=== PATIENT | female | born 1990 | race Caucasian/White ===

== ENCOUNTER 2023-01-02 13:20 | Emergency (ER) | payer OTHER, SELFPAY ==
[~2023-01-02] VITALS: Ht 162.6 cm; Wt 105.6 kg
[2023-01-02 13:20] VITALS: TEMP 98.7
[~2023-01-02 13:20] MED LIST: ALLE180T33 PO; APAP325T4 PO; IBUP1TAB7 PO; MELA3TAB49 PO
[2023-01-02 14:37] LABS: BASO # 0.1 10^3/uL (0.0-0.2); BASO % 0.9 % (0.0-1.0); EOS # 0.2 10^3/uL (0.0-0.5); EOS % 2.2 % (0.0-3.0); HEMATOCRIT 41.2 % (36.0-47.0); HEMOGLOBIN 13.8 g/dl (12.0-15.5); LYMPH # 2.3 10^3/uL (1.5-5.0); LYMPH % 33.3 % (24.0-44.0); MEAN CORPUSCULAR HEMOGLOBIN 29.1 pg (27.0-33.0); MEAN CORPUSCULAR HGB CONC 33.5 g/dl (32.0-36.5); MEAN CORPUSCULAR VOLUME 86.9 fl (80.0-96.0); MONO # 0.6 10^3/uL (0.0-0.8); MONO % 8.3 % (2.0-8.0); NEUTROPHILS # 3.7 10^3/uL (1.5-8.5); PLATELET COUNT, AUTOMATED 228 10^3/uL (150-450); RED BLOOD COUNT 4.74 10^6/uL (4.00-5.40); WHITE BLOOD COUNT 6.8 10^3/uL (4.0-10.0)
[2023-01-02] MEDS ORDERED: DICL50TA2 PO (14:57)
[2023-01-02] MEDS ORDERED: ONDA4TAB6 PO (14:57)
[2023-01-02] MEDS ORDERED: EXCETAB32 PO (14:57)
[2023-01-02 15:01] LABS: ETHYL ALCOHOL (ETHANOL) < 0.003 % (0.000-0.010); SALICYLATE LEVEL < 3.0 MG/DL (<30)
[2023-01-02 15:02] LABS: ALBUMIN 4.1 G/DL (3.2-5.2); ALKALINE PHOSPHATASE 52 U/L (46-116); ALT/SGPT 92 U/L (7.0-40); AST/SGOT 26 U/L (<34); BILIRUBIN,DIRECT 0.1 MG/DL (<0.4); BILIRUBIN,TOTAL 0.3 MG/DL (0.3-1.2); BLOOD UREA NITROGEN 12 MG/DL (9-23); CALCIUM LEVEL 9.2 MG/DL (8.5-10.1); CARBON DIOXIDE LEVEL 25 MMOL/L (20-31); CHLORIDE LEVEL 110 MMOL/L (98-107); CREATININE FOR GFR 0.56 MG/DL (0.55-1.30); GLOMERULAR FILTRATION RATE > 60.0 (>60); GLUCOSE, FASTING 116 MG/DL (60-100); SODIUM LEVEL 143 MMOL/L (136-145); TOTAL PROTEIN 7.2 G/DL (5.7-8.2)
[2023-01-02 15:04] LABS: THYROID STIMULATING HORMONE 0.654 uIU/ML (0.55-4.78)
[2023-01-02 15:18] LABS: OSMOLALITY SERUM 293 MOSM/KG (275-295)
[2023-01-02 15:24] LABS: AMPHETAMINES LEVEL URINE NEGATIVE (NEGATIVE); BARBITURATES URINE NEGATIVE (NEGATIVE); BENZODIAZEPINES URINE NEGATIVE (NEGATIVE); CANNABINOIDS URINE NEGATIVE (NEGATIVE); COCAINE METABOLITE URINE NEGATIVE (NEGATIVE); METHADONE URINE NEGATIVE (NEGATIVE); OPIATES URINE NEGATIVE (NEGATIVE); PHENCYCLIDINE URINE NEGATIVE (NEGATIVE)
[2023-01-02 17:45] VITALS: BP 134/80; O2SAT 99
== END 2023-01-02 18:56 | disposition home or self-care (01) ==
LOC: M ED 13:20
DX: G43.909 Migraine, unspecified, not intractable, without status migrainosus (principal); R47.82 Fluency disorder in conditions classified elsewhere; Z79.899 Other long term (current) drug therapy; Z79.82 Long term (current) use of aspirin

== ENCOUNTER 2023-02-23 03:34 | Emergency (ER) | payer OTHER ==
[~2023-02-23] VITALS: Ht 162.6 cm; Wt 107.3 kg
[~2023-02-23 03:34] MED LIST changes: +DICL50TA2 PO; +EXCETAB32 PO; +ONDA4TAB6 PO
[2023-02-23 03:56] VITALS: TEMP 96.1
[2023-02-23] MEDS ORDERED: NS 1,000 ML IV ONE (04:25)
[2023-02-23 04:50] LABS: HEMATOCRIT 42.3 % (36.0-47.0); HEMOGLOBIN 14.1 g/dl (12.0-15.5); MEAN CORPUSCULAR HEMOGLOBIN 28.9 pg (27.0-33.0); MEAN CORPUSCULAR HGB CONC 33.3 g/dl (32.0-36.5); MEAN CORPUSCULAR VOLUME 86.7 fl (80.0-96.0); PLATELET COUNT, AUTOMATED 281 10^3/uL (150-450); RED BLOOD COUNT 4.88 10^6/uL (4.00-5.40); WHITE BLOOD COUNT 12.6 10^3/uL (4.0-10.0)
[2023-02-23 05:27] LABS: BLOOD UREA NITROGEN 10 MG/DL (9-23); CARBON DIOXIDE LEVEL 24 MMOL/L (20-31); CHLORIDE LEVEL 106 MMOL/L (98-107); CREATININE FOR GFR 0.53 MG/DL (0.55-1.30); GLOMERULAR FILTRATION RATE > 60.0 (>60); GLUCOSE, FASTING 181 MG/DL (60-100); MAGNESIUM LEVEL 1.7 MG/DL (1.8-2.4); POTASSIUM SERUM 4.2 MMOL/L (3.5-5.1); SODIUM LEVEL 139 MMOL/L (136-145)
[2023-02-23] MEDS ORDERED: MAG SULF 1GM/100ML (MAG RUN) 1 GM in IV 1 EA IV ONE (05:45)
[2023-02-23 06:00] LABS: HCG, SERUM QUALITATIVE NEGATIVE (NEGATIVE)
[2023-02-23] MEDS ORDERED: diphenhydrAMINE 50MG/ML VIAL IV ONE (06:05)
[2023-02-23] MEDS ORDERED: METOCLOPRAMIDE INJ 10MG/2ML VIAL IV ONE (06:05)
[2023-02-23] MEDS ORDERED: KETOROLAC 30 MG/ML 1ML VIAL IV ONE (07:00)
[2023-02-23] MEDS ORDERED: MORPHINE 4 MG/ML 1ML VIAL IV ONE (07:55)
[2023-02-23] MEDS ORDERED: ONDANSETRON 4MG 2ML VIAL IV ONE (08:35)
[2023-02-23] MEDS ORDERED: VALPROATE SOD INJ 1,000 MG in D5W 50 ML IV ONE (08:45)
[2023-02-23] MEDS ORDERED: NORT25CA2 PO (10:34)
[2023-02-23] MEDS ORDERED: REGL10TA6 PO (10:34)
[2023-02-23 10:57] VITALS: BP 111/69; O2SAT 98
== END 2023-02-23 11:00 | disposition home or self-care (01) ==
LOC: M ED 03:34
DX: R51.9 Headache, unspecified (principal); E28.2 Polycystic ovarian syndrome
CPT/HCPCS: 70450; 80048; 83735; 84703; 85027; 96365; 96367; 96375; 99284; J1100; J1200; J1885; J2765; J3475

== ENCOUNTER 2023-02-27 17:13 | Emergency (ER) | payer OTHER ==
[~2023-02-27] VITALS: Ht 162.6 cm; Wt 104.5 kg
[~2023-02-27 17:13] MED LIST changes: +NORT25CA2 PO; +REGL10TA6 PO
[2023-02-27] MEDS ORDERED: SUMA50TA2 (17:27)
[2023-02-27] MEDS ORDERED: METOCLOPRAMIDE 10MG TAB PO ONE (19:45)
[2023-02-27] MEDS ORDERED: KETOROLAC 30 MG/ML 1ML VIAL IV ONE (19:45)
[2023-02-27] MEDS ORDERED: MECLIZINE 25 MG TABLET PO ONE (19:45)
[2023-02-27] MEDS ORDERED: TOPIRAMATE (TopAMAX) 25 MG TAB PO ONE (19:45)
[2023-02-27] MEDS ORDERED: NS 1,000 ML IV ONE (19:45)
[2023-02-27] MEDS ORDERED: MECL-209 PO (22:21)
[2023-02-27 22:35] VITALS: BP 118/72; TEMP 96.4; O2SAT 97
== END 2023-02-27 22:38 | disposition home or self-care (01) ==
LOC: M ED 17:13
DX: G44.229 Chronic tension-type headache, not intractable (principal); K21.9 Gastro-esophageal reflux disease without esophagitis; E28.2 Polycystic ovarian syndrome; F10.10 Alcohol abuse, uncomplicated; Z79.1 Long term (current) use of non-steroidal anti-inflammatories (NSAID); Z79.899 Other long term (current) drug therapy
CPT/HCPCS: 96374; 96375; 99284; J1885

== ENCOUNTER → 2023-03-07 | Outpatient (REF) | payer OTHER ==
[~2023-03-07] MED LIST changes: +MECL-209 PO; +PROZ20CA11 PO; +SUMA50TA2; +[UNRECOGNIZED DRUG - OTHER]
== END ==
LOC: M PLALAB 10:47
PROVIDERS: ATTEND Advanced Practice Midwife
DX: R87.610 Atypical squamous cells of undetermined significance on cytologic smear of cervix (ASC-US) (principal)
CPT/HCPCS: 87624; G0123; G0463

== ENCOUNTER 2023-03-11 16:43 | Outpatient (CLI) | payer OTHER ==
[~2023-03-11] VITALS: Ht 162.6 cm; Wt 105.0 kg
[~2023-03-11 16:43] MED LIST changes: -PROZ20CA11 PO; -[UNRECOGNIZED DRUG - OTHER]; +methylPREDNISolone 1,000 MG, VIAL MATE ADAPTER 1 EACH in NS 250 ML IV ONE
[2023-03-11 17:00] VITALS: BP 109/69; O2SAT 98
[2023-03-11] MEDS ORDERED: PROZ20CA11 PO (17:21)
[2023-03-11] MEDS ORDERED: [UNRECOGNIZED DRUG - OTHER] (17:21)
[2023-03-11 18:24] VITALS: BP 142/86; O2SAT 99
== END 2023-03-11 18:30 | disposition home or self-care (01) ==
LOC: M INFU 16:43
PROVIDERS: ATTEND Psychiatry & Neurology Neurology
DX: G35 Multiple sclerosis (principal)
CPT/HCPCS: 96365; J2930

== ENCOUNTER 2023-03-12 16:45 | Outpatient (CLI) | payer OTHER ==
[~2023-03-12 16:45] MED LIST changes: +PROZ20CA11 PO; +[UNRECOGNIZED DRUG - OTHER]; -methylPREDNISolone 1,000 MG, VIAL MATE ADAPTER 1 EACH in NS 250 ML IV ONE
[2023-03-12 16:56] VITALS: BP 146/86; O2SAT 98
[2023-03-12] MEDS ORDERED: methylPREDNISolone 1,000 MG, VIAL MATE ADAPTER 1 EACH in NS 250 ML IV ONE (17:00)
[2023-03-12 18:05] VITALS: BP 141/94; O2SAT 98
== END 2023-03-12 18:06 | disposition home or self-care (01) ==
LOC: M INFU 16:45
PROVIDERS: ATTEND Psychiatry & Neurology Neurology
DX: G35 Multiple sclerosis (principal)
CPT/HCPCS: 96365; J2930

== ENCOUNTER 2023-03-13 16:50 | Outpatient (CLI) | payer OTHER ==
[~2023-03-13] VITALS: Ht 162.6 cm; Wt 105.0 kg
[2023-03-13 16:50] VITALS: BP 167/88; O2SAT 98
[2023-03-13] MEDS ORDERED: methylPREDNISolone 1,000 MG, VIAL MATE ADAPTER 1 EACH in NS 250 ML IV ONE (17:00)
[2023-03-13 18:04] VITALS: BP 142/94; O2SAT 100
== END 2023-03-13 18:05 ==
LOC: M INFU 16:50
PROVIDERS: ATTEND Psychiatry & Neurology Neurology
DX: G35 Multiple sclerosis (principal)
CPT/HCPCS: 96365; J2930

== ENCOUNTER 2023-03-14 16:40 | Outpatient (CLI) | payer OTHER ==
[2023-03-14 16:40] VITALS: BP 161/92; O2SAT 99
[2023-03-14] MEDS ORDERED: methylPREDNISolone 1,000 MG, VIAL MATE ADAPTER 1 EACH in NS 250 ML IV ONE (17:00)
[2023-03-14 17:49] VITALS: BP 140/84; O2SAT 94
== END 2023-03-14 17:55 ==
LOC: M INFU 16:40
PROVIDERS: ATTEND Psychiatry & Neurology Neurology
DX: G35 Multiple sclerosis (principal)
CPT/HCPCS: 96365; J2930

== ENCOUNTER 2023-03-15 16:40 | Outpatient (CLI) | payer OTHER ==
[2023-03-15 16:40] VITALS: BP 179/98; O2SAT 97
[2023-03-15] MEDS: methylPREDNISolone 1,000 MG, VIAL MATE ADAPTER 1 EACH in NS 250 ML IV ONE (16:40)
[2023-03-15 18:00] VITALS: BP 156/83; O2SAT 100
== END 2023-03-15 18:00 | disposition home or self-care (01) ==
LOC: M INFU 16:40
PROVIDERS: ATTEND Psychiatry & Neurology Neurology
DX: G35 Multiple sclerosis (principal)
CPT/HCPCS: 96365; J2930

== ENCOUNTER → 2023-04-04 | Outpatient (CLI) | payer OTHER ==
[2023-04-04 13:42] LABS: HEMATOCRIT 40.6 % (36.0-47.0); HEMOGLOBIN 13.6 g/dl (12.0-15.5); MEAN CORPUSCULAR HEMOGLOBIN 28.9 pg (27.0-33.0); MEAN CORPUSCULAR HGB CONC 33.5 g/dl (32.0-36.5); MEAN CORPUSCULAR VOLUME 86.4 fl (80.0-96.0); PLATELET COUNT, AUTOMATED 286 10^3/uL (150-450)
[2023-04-04 13:54] LABS: INR 0.94; PROTHROMBIN TIME 12.3 SECONDS (12.5-14.5)
[2023-04-04 15:00] LABS: APPEARANCE, CSF CLEAR (CLEAR); COLOR, CSF COLORLESS (COLORLESS); CSF TUBE# CELL CNT TUBE 1
[2023-04-04 15:05] LABS: CSF TUBE# TP TUBE 1
[2023-04-04 15:07] LABS: CSF TUBE# GLU TUBE 1
[2023-04-04 16:11] VITALS: BP 129/80; O2SAT 100
== END ==
LOC: M IRPRO 12:31
PROVIDERS: ATTEND Psychiatry & Neurology Neurology
DX: G35 Multiple sclerosis (principal)

== ENCOUNTER → 2023-12-18 | Outpatient (CLI) | payer OTHER ==
[~2023-12-18] MED LIST changes: +ONDA-282 PO; -ONDA4TAB6 PO
== END ==
LOC: M WUC 10:31
PROVIDERS: ATTEND Chiropractor
DX: M54.13 Radiculopathy, cervicothoracic region (principal); M51.362 Other intervertebral disc degeneration, lumbar region with discogenic back pain and lower extremity pain; M51.34 Other intervertebral disc degeneration, thoracic region; M99.01 Segmental and somatic dysfunction of cervical region; M99.03 Segmental and somatic dysfunction of lumbar region; M99.02 Segmental and somatic dysfunction of thoracic region; M99.04 Segmental and somatic dysfunction of sacral region

== ENCOUNTER → 2023-12-26 | Outpatient (CLI) | payer OTHER | LOC: M PLAIMG 08:50 | PROVIDERS: ATTEND Otolaryngology | DX: J32.0 Chronic maxillary sinusitis (principal) ==

== ENCOUNTER → 2024-05-27 | Outpatient (REF) | payer OTHER | LOC: M SFHCWAGY 13:04 | PROVIDERS: ATTEND Advanced Practice Midwife | DX: Z12.4 Encounter for screening for malignant neoplasm of cervix (principal) ==

== ENCOUNTER 2024-08-24 11:29 | Emergency (ER) | payer OTHER ==
[~2024-08-24] VITALS: Ht 163.8 cm; Wt 106.4 kg
[2024-08-24 12:48] LABS: BASO # 0.1 10^3/uL (0.0-0.2); BASO % 0.8 % (0.0-1.0); EOS # 0.1 10^3/uL (0.0-0.5); EOS % 0.5 % (0.0-3.0); LYMPH # 2.6 10^3/uL (1.5-5.0); LYMPH % 28.4 % (24.0-44.0); MONO # 0.7 10^3/uL (0.0-0.8); MONO % 7.0 % (2.0-8.0); NEUTROPHILS # 5.8 10^3/uL (1.5-8.5); NEUTROPHILS % 62.8 % (36.0-66.0); PLATELET COUNT, AUTOMATED 295 10^3/uL (150-450)
[2024-08-24 13:05] LABS: INR 0.91
[2024-08-24 13:25] LABS: HCG, SERUM QUALITATIVE NEGATIVE (NEGATIVE)
[2024-08-24 13:26] LABS: ALT/SGPT 101 U/L (7.0-40); AST/SGOT 61 U/L (<34); CALCIUM LEVEL 10.3 MG/DL (8.5-10.1); CARBON DIOXIDE LEVEL 24 MMOL/L (20-31); CHLORIDE LEVEL 101 MMOL/L (98-107); CK-MB VALUE MASS 1.7 NG/ML (<3.6); CREATININE FOR GFR 0.81 MG/DL (0.55-1.30); GLOMERULAR FILTRATION RATE > 90.0 (>60); POTASSIUM SERUM 4.0 MMOL/L (3.5-5.1); SODIUM LEVEL 141 MMOL/L (136-145)
[2024-08-24 13:27] LABS: CPK CREATINE PHOSPHOKINASE 102 U/L (34-145); MB/CK RELATIVE INDEX 1.66 (< OR =4)
[2024-08-24 13:28] LABS: FREE T4 1.31 NG/DL (0.89-1.76)
[2024-08-24] MEDS: NS (Normal Saline) 0.9% 1,000 ML IV ONE (15:22)
[2024-08-24 15:54] LABS: CK-MB VALUE MASS 1.4 NG/ML (<3.6)
[2024-08-24 15:55] LABS: CPK CREATINE PHOSPHOKINASE 90 U/L (34-145); MB/CK RELATIVE INDEX 1.55 (< OR =4)
[2024-08-24] MEDS: ONDANSETRON 4MG 2ML VIAL IV ONE (17:46)
[2024-08-24] MEDS: KETOROLAC 30 MG/ML 1 ML VIAL IV ONE (17:47)
[2024-08-24] MEDS: ACETAMINOPHEN 500 MG TAB PO ONE (17:48)
[2024-08-24 18:30] VITALS: BP 124/76; O2SAT 97
[2024-08-24 18:51] VITALS: TEMP 98.4
== END 2024-08-24 18:56 | disposition home or self-care (01) ==
LOC: M ED 11:29
DX: R55 Syncope and collapse (principal); G43.909 Migraine, unspecified, not intractable, without status migrainosus; K58.9 Irritable bowel syndrome, unspecified; E28.2 Polycystic ovarian syndrome; R00.0 Tachycardia, unspecified; Z79.899 Other long term (current) drug therapy
CPT/HCPCS: 71046; 80048; 80076; 82550; 82553; 83690; 84439; 84443; 84484; 84703; 85025; 85610; 85730; 93005; 93041; 94760; 96361; 96374; 96375; 99285; J1885; J2405

== ENCOUNTER 2024-09-05 13:57 | Emergency (ER) | payer OTHER ==
[~2024-09-05] VITALS: Ht 162.6 cm; Wt 104.1 kg
[~2024-09-05 13:57] MED LIST changes: -PROZ20CA11 PO; +PROZ20CA12 PO
[2024-09-05] MEDS: NS (Normal Saline) 0.9% 1,000 ML IV ONE (17:53)
[2024-09-05 18:03] LABS: BASO # 0.1 10^3/uL (0.0-0.2); BASO % 0.7 % (0.0-1.0); EOS # 0.1 10^3/uL (0.0-0.5); EOS % 0.8 % (0.0-3.0); LYMPH # 3.3 10^3/uL (1.5-5.0); LYMPH % 34.5 % (24.0-44.0); MONO # 0.7 10^3/uL (0.0-0.8); MONO % 6.8 % (2.0-8.0); NEUTROPHILS # 5.4 10^3/uL (1.5-8.5); NEUTROPHILS % 56.6 % (36.0-66.0); PLATELET COUNT, AUTOMATED 271 10^3/uL (150-450)
[2024-09-05] MEDS: ALPRAZolam 0.5 MG TAB PO ONE (18:15)
[2024-09-05 19:01] LABS: ALT/SGPT 85 U/L (7.0-40); AST/SGOT 55 U/L (<34); CALCIUM LEVEL 9.1 MG/DL (8.5-10.1); CARBON DIOXIDE LEVEL 26 MMOL/L (20-31); CHLORIDE LEVEL 104 MMOL/L (98-107); CPK CREATINE PHOSPHOKINASE 46 U/L (34-145); CREATININE FOR GFR 0.67 MG/DL (0.55-1.30); GLOMERULAR FILTRATION RATE > 90.0 (>60); MAGNESIUM LEVEL 2.0 MG/DL (1.8-2.4); POTASSIUM SERUM 4.7 MMOL/L (3.5-5.1); SODIUM LEVEL 140 MMOL/L (136-145); T UPTAKE 30.1 % (22.5-37.0); THYROXINE (T4) 7.5 UG/DL (4.5-10.9); VITAMIN B12 LEVEL 729 PG/ML (211-911)
[2024-09-05] MEDS ORDERED: PRED20TA PO (22:01)
[2024-09-05] MEDS ORDERED: HOLTER MONITOR XX (22:15)
[2024-09-05 22:23] VITALS: BP 107/72; TEMP 97.8; O2SAT 98
[2024-09-09 21:12] LABS: LYME TOTAL ANTIBODY CIA <= 0.90 Index (<=0.90)
== END 2024-09-05 22:26 | disposition home or self-care (01) ==
LOC: M ED 13:57
DX: R53.1 Weakness (principal); R56.9 Unspecified convulsions; K21.9 Gastro-esophageal reflux disease without esophagitis; Z79.899 Other long term (current) drug therapy
CPT/HCPCS: 70551; 72141; 72146; 72148; 80053; 82550; 82607; 82746; 83735; 84436; 84443; 84479; 85025; 86618; 86780; 96361; 96374; 99284; J2919

== ENCOUNTER → 2024-09-14 | Outpatient (CLI) | payer OTHER ==
[~2024-09-14] MED LIST changes: +HOLTER MONITOR XX; +PRED20TA PO
== END ==
LOC: M EKG 09:08
PROVIDERS: ATTEND Physician Assistant
DX: R00.2 Palpitations (principal); R00.0 Tachycardia, unspecified

== ENCOUNTER 2024-12-13 17:40 | Emergency (ER) | payer OTHER ==
[~2024-12-13] VITALS: Ht 162.6 cm; Wt 101.8 kg
[2024-12-13] MEDS: NS (Normal Saline) 0.9% 1,000 ML IV ONE ×2 (17:55→19:16)
[2024-12-13 18:28] LABS: BASO # 0.1 10^3/uL (0.0-0.2); BASO % 0.6 % (0.0-1.0); EOS # 0.1 10^3/uL (0.0-0.5); EOS % 1.4 % (0.0-3.0); LYMPH # 3.4 10^3/uL (1.5-5.0); LYMPH % 39.0 % (24.0-44.0); MONO # 0.7 10^3/uL (0.0-0.8); MONO % 8.2 % (2.0-8.0); NEUTROPHILS # 4.4 10^3/uL (1.5-8.5); NEUTROPHILS % 50.5 % (36.0-66.0); PLATELET COUNT, AUTOMATED 310 10^3/uL (150-450)
[2024-12-13 18:52] LABS: ALT/SGPT 48 U/L (7.0-40); AST/SGOT 24 U/L (<34); CALCIUM LEVEL 9.3 MG/DL (8.5-10.1); CARBON DIOXIDE LEVEL 24 MMOL/L (20-31); CHLORIDE LEVEL 108 MMOL/L (98-107); CREATININE FOR GFR 0.77 MG/DL (0.55-1.30); GLOMERULAR FILTRATION RATE > 90.0 (>60); POTASSIUM SERUM 4.3 MMOL/L (3.5-5.1); SODIUM LEVEL 143 MMOL/L (136-145)
[2024-12-13 18:54] LABS: INR 0.92
[2024-12-13 18:58] LABS: HCG, SERUM QUALITATIVE NEGATIVE (NEGATIVE)
[2024-12-13 19:23] VITALS: TEMP 98.5
[2024-12-13 20:00] VITALS: BP 115/73
[2024-12-13] MEDS ORDERED: TRAN650T PO (20:07)
[2024-12-13 20:08] VITALS: O2SAT 98
== END 2024-12-13 20:34 | disposition home or self-care (01) ==
LOC: M ED 17:40
DX: N93.8 Other specified abnormal uterine and vaginal bleeding (principal); G35.D Multiple sclerosis, unspecified; G43.909 Migraine, unspecified, not intractable, without status migrainosus; E28.2 Polycystic ovarian syndrome; Z79.899 Other long term (current) drug therapy